=== PATIENT | male | born 1970 | race Caucasian/White ===

== ENCOUNTER → 2021-07-07 | Outpatient (CLI) | payer MEDICARE, OTHER | LOC: MRI 06-14 10:30 | DX: C21.8 Malignant neoplasm of overlapping sites of rectum, anus and anal canal (principal) | CPT/HCPCS: 72197; A9577 ==

== ENCOUNTER → 2022-05-04 | Outpatient (CLI) | payer MEDICARE | LOC: LAB 11:18 | DX: C20 Malignant neoplasm of rectum (principal); C77.5 Secondary and unspecified malignant neoplasm of intrapelvic lymph nodes; K94.13 Enterostomy malfunction; K65.1 Peritoneal abscess; Z20.822 Contact with and (suspected) exposure to COVID-19 | CPT/HCPCS: U0002 ==